=== PATIENT | male | born 1970 | race American Indian/Alaskan Native ===

== ENCOUNTER 2020-02-21 11:27 | Emergency (ER) | payer SELFPAY ==
[2020-02-21] MEDS ORDERED: FUROSEMIDE 40 MG/4 ML INJ ONE (11:30)
[2020-02-21] MEDS ORDERED: PROPOFOL 1,000 MG/100 ML BOTTLE IV ONE (11:30)
[2020-02-21] MEDS ORDERED: SUCCINYLCHOLINE CHLORIDE 200 MG/10 ML INJ MDV ONE (11:30)
[2020-02-21] MEDS ORDERED: fentaNYL 100 MCG/2 ML INJ ONE ×2 (11:30→12:35)
[2020-02-21] MEDS ORDERED: ETOMIDATE 20 MG/10 ML INJ IV ONE ×2 (11:30→11:37)
[2020-02-21] MEDS ORDERED: MINERAL OIL/PETROLATUM, WHITE OPHTH OINT 3.5 GM OU PRN (11:32)
[2020-02-21] MEDS ORDERED: LIP THERAPY VASELINE TP PRN (11:32)
[2020-02-21] MEDS ORDERED: SUCCINYLCHOLINE CHLORIDE 200 MG/10 ML INJ MDV IV ONE (11:37)
[2020-02-21] MEDS ORDERED: FUROSEMIDE 40 MG/4 ML INJ IV ONE (11:38)
[2020-02-21] MEDS ORDERED: niCARdipine DRIP 40 MG/200 ML BAG ONE (11:43)
[2020-02-21] MEDS ORDERED: niCARdipine 50 MG in SODIUM CHLORIDE 0.9% 250ML 230 ML IV SCH (12:00)
[2020-02-21 12:06] LABS: Hematocrit 40.4 % (35.5-45.6); Hemoglobin 12.8 gm/dl (11.8-15.2); Mean Corpuscular HGB Conc 32 % (32-34); Mean Corpuscular Volume 96 fl (84-94); Platelet Count 216 K/mm3 (140-440); Red Blood Count 4.23 M/mm3 (3.65-5.03); Red Cell Distribution Width 14.8 % (13.2-15.2)
--- NOTE | 2020-02-21 12:10 | XRay Report ---
CHEST 1 VIEW INDICATION / CLINICAL INFORMATION: ETT placement. COMPARISON: None available. FINDINGS: SUPPORT DEVICES: ET tube with its tip noted at the level the clavicles. NG tube noted with its tip pr ojected over the mid mediastinum. HEART / MEDIASTINUM: Minimally enlarged cardiac silhouette LUNGS / PLEURA: Diffuse pulmonary infiltrate noted throughout the right lung base and midlung field. No pneumothorax. No pleural effusion. ADDITIONAL FINDINGS: No significant additional findings. IMPRESSION: 1. ET tube noted in appropriate position. 2. NG tube is noted with its tip projected over the mediastinum. Advancement approximately 20 cm is r ecommended. 3. Diffuse infiltrate noted throughout the right mid and lower lung field, likely infectious process. Signer Name: Anibal Cuevas MD Signed: 02/21/2020 12:06 PM Workstation Name: [id number]
[2020-02-21 12:13] LABS: INR 1.28 (0.87-1.13)
[2020-02-21 12:14] LABS: Thrombin Time 22.8 Sec. (15.1-19.6)
[2020-02-21 12:21] LABS: Calcium 9.2 mg/dL (8.4-10.2)
--- NOTE | 2020-02-21 12:22 | Emergency Department Report ---
ED General Adult HPI - General Chief complaint: Dyspnea/Respdistress Stated complaint: UNRESPONSIVE Time Seen by Provider: 02/21/20 11:32 Source: EMS Mode of arrival: Stretcher Limitations: Altered Mental Status - History of Present Illness Initial comments: This is a 49-year old man who was last known well time was more than 2 hours prior to EMS arrival. EMS stated to me use a did not have any explanation for the patient's long downtime. The family stated that he was unconscious for at least 2 hours per the family. He was transported to this facility. 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 He was completely unresponsive. His Accu-Chek was measured in the mid 100s. According to medics his pupils were unresponsive to light. He arrived essentially was fixed and dilated pupils, GCS of 3. He had profuse pulmonary edema pouring from his nose. A nasal trumpet has been inserted by paramedics. Paramedics stated that he was "posturing" on the left when they arrived. Initially a code stroke was called but with evidence of likely intracranial hemorrhage and the need for critical care management to include intubation this was discontinued. The last presentation of this patient to [facility] was in 2012 for an upper respiratory infection. -: hour(s) - Related Data Previous Rx's Medication Instructions Recorded Last Taken Type Azithromycin [Zithromax] 500 mg PO QDAY #3 tablet 03/19/13 Unknown Rx HYDROcodone/APAP 5-325 [[place] 1 each PO Q6HR PRN #20 tablet 03/19/13 Unknown Rx 5/325 mg] amLODIPine [Norvasc] 5 mg PO DAILY #30 tab 03/19/13 Unknown Rx Allergies Allergy/AdvReac Type Severity Reaction Status Date / Time No Known Allergies Allergy Unverified 03/19/13 14:05 ED Review of Systems ROS: Stated complaint: UNRESPONSIVE Other details as noted in HPI Comment: Unobtainable due to pts medical conditions ED Past Medical Hx - Past Medical History Hx Hypertension: Yes - Social History Smoking Status: Never Smoker Substance Use Type: Other (Unknown) - Medications Home Medications: Home Medications Medication Instructions Recorded Confirmed Last Taken Type Azithromycin [Zithromax] 500 mg PO QDAY #3 tablet 03/19/13 Unknown Rx HYDROcodone/APAP 5-325 [[place] 1 each PO Q6HR PRN #20 tablet 03/19/13 Unknown Rx 5/325 mg] amLODIPine [Norvasc] 5 mg PO DAILY #30 tab 03/19/13 Unknown Rx ED Physical Exam - General Limitations: Altered Mental Status General appearance: other (GCS 3, profuse pulmonary edema pouring out of nose and oropharynx) - Head Head exam: Present: atraumatic - Eye Pupils: Present: other (Fixed and dilated pupils bilaterally) - ENT ENT exam: Present: normal orophraynx (Pooling secretions) - Neck Neck exam: Present: normal inspection - Respiratory Respiratory exam: Present: rhonchi (Bilaterally) - Cardiovascular Cardiovascular Exam: Present: tachycardia - GI/Abdominal GI/Abdominal exam: Present: soft, distended (Mildly) - Extremities Exam Extremities exam: Present: normal inspection - Back Exam Back exam: Present: other (Limited inspection) - Neurological Exam Neurological exam: Present: other (GCS is 3) - Psychiatric Psychiatric exam: Present: other (Not applicable) - Skin Skin exam: Present: warm, dry, intact ED Course - Reevaluation(s) Reevaluation #1: The patient was a difficult intubation. His airway was assistive with Ambu bag and or LMA in between efforts. His trachea was extremely long and his airway almost impossible to visualize secondary to profuse pulmonary edema. Ultimately, in view was obtained well enough to insert a bougie. He was subsequently intubated 7.0 Greek endotracheal tube at 23 at the teeth. Chest x-ray showed good tube placement. 02/21/20 12:33 Reevaluation #2: The patient was given labetalol and Lasix initially. His blood pressure was mildly responsive only. Cardene was ordered. At this time, we now have respiratory staff to take the patient for CT examination. They were busy with other intubations and critical patients. It would seem that this patient's prognosis is very dire presenting with a GCS of 3/fixed and dilated pupils and a hypertensive crisis. Cerebral hemorrhage is quite likely. 02/21/20 12:35 Reevaluation #3: I followed the patient down to CT to review his CT scan immediately. The delay was caused by other critical care patients that required respiratory staff. Once respiratory staff was available the patient immediately went to CT. The CT scan was consistent on my viewing with a large subacute (heterogeneous components) subdural on the right with extensive edema and 1.5 cm of midline shift with some subarachnoid blood. Immediately left after I called [facility]. I spoke to the trauma physician Dr. Cruz, the [facility] Attending. She was very kind to accept this patient for immediate level 1 transfer transfer. Later, the radiologist called and essentially concurred with my preliminary interpretation. 02/21/20 13:13 02/21/20 13:20 Reevaluation #4: I spoke to the family extensively about the patient's presentation and findings. They tell me that the patient has been admitted to [facility] for malignant hypertension for a week and possibly to a another hospital "in [place]". They were unsure of the name of the other hospital. They did tell me that the patient has been having headaches for 1 month. He is chronically noncompliant with his blood pressure medicine. They also shared with me that he was a heavy drinker. One of the cousins stated that the patient called him yesterday and was complaining of headache but was coherent. It may be that this intracranial hemorrhage began in the subarachnoid space secondary to a vascular abnormality/hypertension. Perhaps there after it may have collected into the subdural space. In any case, family states there is no known history of trauma. 02/21/20 13:34 - Intubation Time Out Performed: No Sedative: Etomidate Paralytic: Succinylcholine Size: 4 Assist Device Used: Bougie ET Tube Size: 7 Tube Secured Depth (cm): 23 Tube Secured Location: teeth Tube Placement Confirmation: equal breath sounds bilat, no breath sounds over epi, confirmation by capnometr Patient Tolerated Procedure: well Intubation Complications: difficult intubation, other (Somewhat traumatic.) ED Medical Decision Making - Lab Data Result diagrams: 02/21/20 11:44 02/21/20 11:44 Laboratory Results - last 24 hr 02/21/20 02/21/20 02/21/20 11:44 11:44 11:44 WBC 14.2 H RBC 4.23 Hgb 12.8 Hct 40.4 MCV 96 H MCH 30 MCHC 32 RDW 14.8 Plt Count 216 Seg Neutrophils % Felt Puller PT 15.8 H INR 1.28 H APTT 42.0 H Thrombin Time 22.8 H Sodium 141 Potassium 4.1 Chloride 107.0 Carbon Dioxide 24 Anion Gap 14 BUN 58 H Creatinine 3.7 H Estimated GFR 21 BUN/Creatinine Ratio 16 Glucose 187 H Calcium 9.2 Magnesium Total Bilirubin Direct Bilirubin Indirect Bilirubin AST ALT Alkaline Phosphatase Total Creatine Kinase CK-MB (CK-2) CK-MB (CK-2) Rel Index Troponin T 0.061 H NT-Pro-B Natriuret Pep Total Protein Albumin Albumin/Globulin Ratio 02/21/20 11:44 WBC RBC Hgb Hct MCV MCH MCHC RDW Plt Count Seg Neutrophils % PT INR APTT Thrombin Time Sodium Potassium Chloride Carbon Dioxide Anion Gap BUN Creatinine Estimated GFR BUN/Creatinine Ratio Glucose Calcium Magnesium 2.30 Total Bilirubin 0.40 Direct Bilirubin < 0.2 Indirect Bilirubin 0.2 AST 29 ALT 16 Alkaline Phosphatase 88 Total Creatine Kinase 286 H CK-MB (CK-2) 4.1 H CK-MB (CK-2) Rel Index 1.4 Troponin T NT-Pro-B Natriuret Pep 32897 H Total Protein 7.5 Albumin 3.6 L Albumin/Globulin Ratio 0.9 - EKG Data -: EKG Interpreted by Or EKG shows normal: sinus rhythm Rate: bradycardia - EKG Data Interpretation: LV[facility] - Radiology Data Radiology results: image reviewed (Chest x-ray shows good tube position, bilateral interstitial infiltrates. Right-sided airspace consolidation. I think this suggests pulmonary edema and aspiration.) Critical Care Time: Yes Critical care time in (mins) excluding proc time.: 110 Critical care attestation.: If time is entered above; I have spent that time in minutes in the direct care of this critically ill patient, excluding procedure time. ED Disposition Clinical Impression: Subdural hematoma, Hypertensive crisis, Chronic renal insufficiency, stage IV (severe) Respiratory failure Qualifiers: Chronicity: acute Respiratory failure complication: unspecified whether with hypoxia or hypercapnia Qualified Code(s): J96.00 - Acute respiratory failure, unspecified whether with hypoxia or hypercapnia Aspiration pneumonia Qualifiers: Aspiration pneumonia type: unspecified Laterality: right Lung location: unspecified part of lung Qualified Code(s): J69.0 - Pneumonitis due to inhalation of food and vomit Disposition: DC/TX-70 ANOTHER TYPE HLTHCARE Is pt being admited?: No Does the pt Need Aspirin: No Condition: Stable Instructions: Bacterial Pneumonia (ED), Hypertension (ED) Time of Disposition: 13:36
[2020-02-21 12:23] LABS: Creatine Kinase MB 4.1 ng/mL (0.0-4.0)
[2020-02-21 12:25] LABS: Alanine Aminotransferase 16 units/L (7-56); Albumin 3.6 g/dL (3.9-5)
[2020-02-21 12:26] LABS: Bilirubin,Direct < 0.2 mg/dL (0-0.2)
[2020-02-21] MEDS ORDERED: CEFEPIME/NS 1 GM/100 ML 1 GM/100 ML BAG IV ONE (12:27)
[2020-02-21] MEDS ORDERED: fentaNYL 100 MCG/2 ML INJ IV ONE (12:30)
[2020-02-21] MEDS ORDERED: levETIRAcetam 1000 MG/NS 0.75% 1,000 MG/100 ML BAG IV ONE (13:05)
[2020-02-21 13:12] LABS: Anisocytosis 1+; Eosinophils % (Manual) 0 % (0.0-4.3); Large Platelets Few; Platelet Estimate Consistent w Auto; Total Cells Counted 100
--- NOTE | 2020-02-21 13:28 | Cat Scan Report ---
CT HEAD WITHOUT CONTRAST INDICATION / CLINICAL INFORMATION: neuro deficits <6hrs or sx present upon awakening. TECHNIQUE: All CT scans at this location are performed using CT dose reduction for ALARA by means of automated e xposure control. COMPARISON: None available. FINDINGS: HEMORRHAGE: Mixed attenuation subdural hematoma along the right frontal convexity measures 1.5 cm in greatest diameter, which may be subacute. Additionally a subarachnoid hemorrhage is noted. EXTRA-AXIAL SPACES: Hemorrhage as described above. VENTRICULAR SYSTEM: Effacement of the right lateral ventricle is noted. CEREBRAL PARENCHYMA: Mild effacement of sulci and gyri secondary to hemorrhage. No acute territorial infarct. MIDLINE SHIFT OR HERNIATION: 1.4 cm midline shift to the left. CEREBELLUM / BRAINSTEM: No significant abnormality. ORBITS: Normal as visualized. SOFT TISSUES of HEAD: No significant abnormality. CALVARIUM: No significant abnormality. PARANASAL SINUSES / MASTOID AIR CELLS: Mucosal thickening noted of the left maxillary sinus. ADDITIONAL FINDINGS: None. IMPRESSION: 1. Subdural hematoma along the right frontal convexity with 1.4 cm midline shift to the left. 2. Subarachnoid hemorrhage. CRITICAL RESULT: Time of Discovery (PAI GOW MANAGER/CDT): 1214 Time of Communication (PAI GOW MANAGER/CDT): 1218 Licensed Practitioner Receiving Report: Dr. Franklin ([facility]) Read-Back Performed: Yes. Signer Name: Anibal Cuevas MD Signed: 02/21/2020 1:24 PM Workstation Name: [id number]
[2020-02-21 13:32] LABS: ABG Base Excess -0.7 mmol/L (-2.0-3.0); ABG HCO3 24.6 mmol/L (20.0-26.0); ABG Methemoglobin 0.5 % (0.0-1.5); ABG Oxygen Saturation 96.6 % (95.0-99.0); ABG PCO2 42.8 mm Hg; ABG PH 7.377 pH Units (7.350-7.450); ABG PO2 85.1 mm Hg (80.0-90.0)
[2020-02-21 13:35] LABS: C-Reactive Protein 0.7 mg/dL (0.00-1.30)
[2020-02-21 13:54] VITALS: BP 135/76
--- NOTE | 2020-02-22 08:19 | Progress Note ---
Subjective Date of service: 02/21/20 Principal diagnosis: respiratoty failure Interval history: Called in by ED charge nurse Dodie around 10AM 02/21/2020 stating that requesting anesthesia assistance for difficult intubation in ED. 20 minutes later, while being en route to the hospital I received the call that Dr Franklin was able to intubate the patient and anesthesia services are not longer needed. Objective - Labs CBC & Chem 7: 02/21/20 11:44 02/21/20 12:29 Labs: Abnormal lab results 02/21/20 02/21/20 02/21/20 Range/Units 11:44 11:44 11:44 WBC 14.2 H (4.5-11.0) K/mm3 MCV 96 H (84-94) fl Seg Neuts % (Manual) 90.0 H (40.0-70.0) % Lymphocytes % (Manual) 4.0 L (13.4-35.0) % Seg Neutrophils # Man 12.8 H (1.8-7.7) K/mm3 Lymphocytes # (Manual) 0.6 L (1.2-5.4) K/mm3 PT 15.8 H (12.2-14.9) Sec. INR 1.28 H (0.87-1.13) APTT 42.0 H (24.2-36.6) Sec. Thrombin Time 22.8 H (15.1-19.6) Sec. D-Dimer (0-234) ng/mlDDU ABG Hemoglobin (14.0-18.0) gm/dl Oxyhemoglobin (95.0-99.0) % BUN 58 H (9-20) mg/dL Creatinine 3.7 H (0.8-1.3) mg/dL Glucose 187 H (75-100) mg/dL Lactic Acid (0.7-2.0) mmol/L Lactate Dehydrogenase (91-180) units/L Total Creatine Kinase (55-170) units/L CK-MB (CK-2) (0.0-4.0) ng/mL Troponin T 0.061 H (0.00-0.029) ng/mL NT-Pro-B Natriuret Pep (0-450) pg/mL Albumin (3.9-5) g/dL 02/21/20 02/21/2002/20/20 Range/Units 11:44 12:29 12:29 WBC (4.5-11.0) K/mm3 MCV (84-94) fl Seg Neuts % (Manual) (40.0-70.0) % Lymphocytes % (Manual) (13.4-35.0) % Seg Neutrophils # Man (1.8-7.7) K/mm3 Lymphocytes # (Manual) (1.2-5.4) K/mm3 PT (12.2-14.9) Sec. INR (0.87-1.13) APTT (24.2-36.6) Sec. Thrombin Time (15.1-19.6) Sec. D-Dimer 2470.15 H (0-234) ng/mlDDU ABG Hemoglobin (14.0-18.0) gm/dl Oxyhemoglobin (95.0-99.0) % BUN (9-20) mg/dL Creatinine (0.8-1.3) mg/dL Glucose (75-100) mg/dL Lactic Acid 2.40 H* (0.7-2.0) mmol/L Lactate Dehydrogenase (91-180) units/L Total Creatine Kinase 286 H (55-170) units/L CK-MB (CK-2) 4.1 H (0.0-4.0) ng/mL Troponin T (0.00-0.029) ng/mL NT-Pro-B Natriuret Pep 49178 H (0-450) pg/mL Albumin 3.6 L (3.9-5) g/dL 02/21/20 02/21/20 Range/Units 12:29 13:10 WBC (4.5-11.0) K/mm3 MCV (84-94) fl Seg Neuts % (Manual) (40.0-70.0) % Lymphocytes % (Manual) (13.4-35.0) % Seg Neutrophils # Man (1.8-7.7) K/mm3 Lymphocytes # (Manual) (1.2-5.4) K/mm3 PT (12.2-14.9) Sec. INR (0.87-1.13) APTT (24.2-36.6) Sec. Thrombin Time (15.1-19.6) Sec. D-Dimer (0-234) ng/mlDDU ABG Hemoglobin 13.5 L (14.0-18.0) gm/dl Oxyhemoglobin 94.6 L (95.0-99.0) % BUN (9-20) mg/dL Creatinine (0.8-1.3) mg/dL Glucose 178 H (75-100) mg/dL Lactic Acid (0.7-2.0) mmol/L Lactate Dehydrogenase 288 H (91-180) units/L Total Creatine Kinase (55-170) units/L CK-MB (CK-2) (0.0-4.0) ng/mL Troponin T (0.00-0.029) ng/mL NT-Pro-B Natriuret Pep (0-450) pg/mL Albumin (3.9-5) g/dL
== END 2020-02-21 14:30 | disposition other institution (70) ==
LOC: ED 11:27
DX: I62.00 Nontraumatic subdural hemorrhage, unspecified (principal); I10 Essential (primary) hypertension; I12.9 Hypertensive chronic kidney disease with stage 1 through stage 4 chronic kidney disease, or unspecified chronic kidney disease; N18.4 Chronic kidney disease, stage 4 (severe); J96.90 Respiratory failure, unspecified, unspecified whether with hypoxia or hypercapnia; Z79.899 Other long term (current) drug therapy
CPT/HCPCS: 31500; 36415; 51702; 70450; 71045; 80048; 80076; 82140; 82550; 82553; 82728; 82803; 82947; 83615; 83735; 83880; 84145; 84484; 85007; 85025; 85379; 85610; 85670; 85730; 86140; 87040; 87070; 87205; 93005; 96365; 96366; 96375; 99291; 99292; J0330; J0692; J1940; J1953; J2704; J3010; J7050; 94002